=== PATIENT | female | born 1975 | race Two or more races ===

== ENCOUNTER → 2020-08-30 | Outpatient (CLI) | payer BC ==
[~2020-08-30] MED LIST: CETI10TA76 PO; CHOL10003 PO; CYAN2500 PO; IRON PO; MAGN400T36 PO; OMEP-110 PO; PRENATAL PO
[2020-08-30 12:36] LABS: BASOPHILS % (AUTO) 0 % (0-1); EOSINOPHILS % (AUTO) 2 % (1-7); LYMPHOCYTES % (AUTO) 36 % (22-44); MEAN CORPUSCULAR HEMOGLOBIN 31.4 pg (27.0-34.8); MEAN CORPUSCULAR HGB CONC 34.2 g/dL (32.4-35.8); MEAN PLATELET VOLUME 9.2 fL (7.4-10.4); MONOCYTES % (AUTO) 7 % (2-9); NEUTROPHILS % (AUTO) 55 % (42-75); PLATELET COUNT 199 x10^3/uL (130-400); RED BLOOD COUNT 4.67 x10^6/uL (3.82-5.3); RED CELL DISTRIBUTION WIDTH 12.9 % (9.6-15.2)
[2020-08-30 12:37] LABS: INTERNATIONAL NORMALIZED RATIO 1.03 (0.93-1.1); PROTHROMBIN TIME 10.9 Seconds (9.6-11.5)
[2020-08-30 12:40] LABS: MD NO
[2020-08-30 13:00] LABS: MICROSCOPIC NOT IND
== END | disposition home or self-care (01) ==
LOC: STAR 11:24
PROVIDERS: ATTEND Obstetrics & Gynecology
DX: Z01.812 Encounter for preprocedural laboratory examination (principal); Z20.828 Contact with and (suspected) exposure to other viral communicable diseases
CPT/HCPCS: 36415; 81003; 85025; 85610; 85730; 87635

== ENCOUNTER 2020-09-03 05:26 | Day surgery (SDC) | payer BC ==
[~2020-09-03] VITALS: Ht 157.5 cm; Wt 85.5 kg
[2020-09-03] MEDS ORDERED: ENOXAPARIN 40 MG/0.4 ML SQ SCH (06:12)
[2020-09-03] MEDS ORDERED: ENOXAPARIN 40 MG/0.4 ML ONE (06:16)
[2020-09-03] MEDS ORDERED: CHLORHEXIDINE 15 ML UDC MM ONE (06:30)
[2020-09-03] MEDS ORDERED: ACETAMINOPHEN 500 MG TABLET PO ONE (06:30)
[2020-09-03] MEDS ORDERED: LACTATED RINGERS 1,000 ML IV SCH (06:30)
[2020-09-03] MEDS ORDERED: BUPIVACAINE/PF 0.25% ONE (06:30)
[2020-09-03] MEDS ORDERED: EPINEPHRINE 1 MG/ML, 1ML ONE (06:30)
[2020-09-03] MEDS ORDERED: FLUORESCEIN SODIUM 500 MG/5 ML ONE (06:30)
[2020-09-03 06:52] LABS: HCG UR SG 1.022 (1.003-1.030)
[2020-09-03] MEDS ORDERED: FENTANYL PF 250 MCG/5ML ONE (07:11)
[2020-09-03] MEDS ORDERED: LIDOCAINE-MPF 2% ,5ML ONE (07:12)
[2020-09-03] MEDS ORDERED: ROCURONIUM 10MG/ML,5ML ONE ×2 (07:12)
[2020-09-03] MEDS ORDERED: PROPOFOL 10 MG/ML, 20ML ONE (07:12)
[2020-09-03] MEDS ORDERED: CEFAZOLIN 1,000 MG ONE ×2 (07:45)
[2020-09-03] MEDS ORDERED: DEXAMETHASONE 4 MG/ML, 1ML ONE ×3 (07:45)
[2020-09-03] MEDS ORDERED: ONDANSETRON 2MG/ML, 2ML IVPush PRN (08:00)
[2020-09-03] MEDS ORDERED: OXYcodone 5 MG/5 ML ORAL.SOL UDC PO PRN (08:00)
[2020-09-03] MEDS ORDERED: FENTANYL PF 100 MCG/2ML IV PRN (08:00)
[2020-09-03] MEDS ORDERED: PROMETHAZINE 25 MG/ML, 1ML IVPush PRN (08:00)
[2020-09-03] MEDS ORDERED: FENTANYL PF 100 MCG/2ML ONE (08:23)
[2020-09-03] MEDS ORDERED: SUGAMMADEX 200 MG/2 ML IVPush ONE ×2 (09:12)
[2020-09-03] MEDS ORDERED: ONDANSETRON 2MG/ML, 2ML ONE (09:12)
[2020-09-03] MEDS ORDERED: OXYcodone 5 MG/5 ML ORAL.SOL UDC ONE (10:05)
[2020-09-03] MEDS ORDERED: SCOPOLAMINE 1MG PATCH TD ONE (14:00)
[2020-09-03] MEDS ORDERED: PROMETHAZINE 25 MG SUPP PR PRN (14:00)
== END 2020-09-03 14:30 | disposition home or self-care (01) ==
LOC: OUT 05:26
PROVIDERS: ATTEND Obstetrics & Gynecology
DX: N92.0 Excessive and frequent menstruation with regular cycle (principal); N94.6 Dysmenorrhea, unspecified; D25.9 Leiomyoma of uterus, unspecified; N83.8 Other noninflammatory disorders of ovary, fallopian tube and broad ligament; K21.9 Gastro-esophageal reflux disease without esophagitis; D50.9 Iron deficiency anemia, unspecified; G43.909 Migraine, unspecified, not intractable, without status migrainosus; Z88.0 Allergy status to penicillin; Z98.890 Other specified postprocedural states; Z90.49 Acquired absence of other specified parts of digestive tract; Z98.84 Bariatric surgery status; Z72.89 Other problems related to lifestyle; Z79.899 Other long term (current) drug therapy
CPT/HCPCS: 36415; 58552; 81025; 85014; 85018; 86850; 86900; 88307; J0171; J0690; J1100; J2405; J2704; J3010; J1650